=== PATIENT | female | born 1995 | race Caucasian/White ===

== ENCOUNTER → 2020-06-07 09:12 | Outpatient (CLI) | payer BC, SELFPAY ==
--- NOTE | ~2020-06-07 | US_ITS ---
US breast LT complete DATE: 06/07/2020 09:37 INDICATION: Left breast lump TECHNIQUE: Complete left breast ultrasound examination COMPARISON: None FINDINGS: No suspicious mass or shadowing is detected. IMPRESSION: BI-RADS Category 1: Negative Reviewed, dictated and finalized at [facility]. Reviewed, dictated and finalized at [facility]. [employer]
== END ==
PROVIDERS: Visit Provider Obstetrics & Gynecology
DX: N63.20 Unspecified lump in the left breast, unspecified quadrant (principal)
CPT/HCPCS: 76641

== ENCOUNTER 2020-10-10 09:04 | Emergency (ER) | payer BC, SELFPAY ==
[2020-10-10 09:36] VITALS: BP 129/64; PULSE 100; RESP 14; TEMP 36.8; O2SAT 100
--- NOTE | 2020-10-10 09:42 | ED.GENADULT ---
HPI - General Adult General Chief complaint: Headache Stated complaint: weathers/sinus problems Time Seen by Provider: 10/10/20 09:27 Source: patient Mode of arrival: ambulatory Limitations: no limitations History of Present Illness HPI narrative: Patient is a 25-year-old female who presents to emergency department for evaluation of headache and sinus symptoms for 1 week patient has been to 3 urgent cares is currently taking Claritin and Flonase prescribed by her ENT was placed on amoxicillin by urgent care and presents noting that she continues to have sinus symptoms. Patient denies fever chills nausea vomiting. Patient notes she is fully vaccinated from COVID-19. Patient denies any vomiting presents in no distress Related Data Home Medications Medication Instructions Recorded Confirmed amoxicillin 500 mg 10/10/20 cabergoline mg 10/10/20 dextroamphetamine-amphetamine 20 mg PO 10/10/20 [Adderall XR] gabapentin 10/10/20 lamotrigine 10/10/20 naltrexone mg 10/10/20 sertraline mg 10/10/20 Allergies Allergy/AdvReac Type Severity Reaction Status Date / Time grapefruit Allergy Unknown Rash Verified 03/16/17 03:49 No Known Drug Allergies Allergy Other Verified 10/10/20 09:40 Review of Systems Review of Systems: All systems reviewed & are unremarkable except as noted in HPI and below PMFSH Past Medical History Medical History (Updated 10/10/20 @ 09:48 by Tadeo Pinto PA-C) Bipolar disorder Social History Social History (Updated 10/10/20 @ 09:45 by Tadeo Pinto PA-C) Smoking status: Never smoker Exam Narrative: Exam Narrative: GENERAL: Well-appearing, well-nourished, and in no acute distress. HEAD: Normocephalic, atraumatic. EYES: PERRLA and EOMI. ENT: Nares clear, no rhinorrhea or epistaxis. Mucous membranes moist. Oropharynx without tonsillar hypertrophy exudate or other lesions. Bilateral TMs slightly erythematous and bulging with poor landmarks NECK: Supple. No adenopathy or masses. CHEST: Clear to auscultation. No respiratory distress. No wheezes rales or rhonchi HEART: Regular rate and rhythm. No murmur heard. EXTREMITIES: Normal range of motion. No edema. SKIN: Warm, dry, no rash. NEURO: No focal deficits. Alert and oriented x3. Cranial nerves II through XII grossly intact PSYCH: Normal mood and affect. Course Course Emergency Course: Patient in the room in no distress hemodynamically stable afebrile nontoxic-appearing advised to follow with her ENT will be treated symptomatically continuing her antibiotics felt appropriate for outpatient reevaluation Vital Signs Vital signs: Vital Signs Temperature 98.3 F 10/10/20 09:36 Pulse Rate 100 10/10/20 09:36 Respiratory Rate 14 10/10/20 09:36 Blood Pressure 129/64 10/10/20 09:36 Pulse Oximetry 100 10/10/20 09:36 Temperature 98.3 F 10/10/20 09:36 Pulse Rate 100 10/10/20 09:36 Respiratory Rate 14 10/10/20 09:36 Blood Pressure 129/64 10/10/20 09:36 Pulse Oximetry 100 10/10/20 09:36 Medical Decision Making MDM Narrative Medical decision making narrative: Patient with sinus symptoms presenting in no distress normal gait. there are No focal neurological deficits on exam. Subarachnoid hemorrhage is felt to be unlikey at this time. There is no history of fever, and neck is supple without meningismus, making meningitis unlikely. No traumatic history or signs of trauma on exam. No risk factors for CVA, risk factors reviewed. Patient advised to follow with her ENT and to continue her treatment plan Vital Signs Vital Signs: Vital Signs Temperature 98.3 F 10/10/20 09:36 Pulse Rate 100 10/10/20 09:36 Respiratory Rate 14 10/10/20 09:36 Blood Pressure 129/64 10/10/20 09:36 Pulse Oximetry 100 10/10/20 09:36 Temperature 98.3 F 10/10/20 09:36 Pulse Rate 100 10/10/20 09:36 Respiratory Rate 14 10/10/20 09:36 Blood Pressure 129/64 10/10/20 09:36 Pulse Oximetry 100 10/10/20 09
[2020-10-10] MEDS: KETOROLAC 30 MG/ML VIAL (*BKC) IV PUSH (10:10)
[2020-10-10 11:08] VITALS: BP 108/78; PULSE 93; RESP 14; O2SAT 100
== END 2020-10-10 11:10 | disposition home or self-care (01) ==
PROVIDERS: Emergency Provider Emergency Medicine
DX: R50.9 Fever, unspecified (principal); J32.9 Chronic sinusitis, unspecified; F31.9 Bipolar disorder, unspecified
CPT/HCPCS: 96374; 99284; J1885

== ENCOUNTER 2023-09-27 07:13 | Emergency (ER) | payer OTHER, SELFPAY ==
[2023-09-27] VITALS (24 sets, daily range): BP systolic 104–124; BP diastolic 71–85; PULSE 89–110; RESP 11–26; TEMP 36.8; O2SAT 97–100
--- NOTE | ~2023-09-27 | XR_ITS ---
EXAMINATION: XR chest 2V 09/27/2023 08:11 INDICATION: Chest pain PROCEDURE: 2 view chest COMPARISON: No prior studies for comparison. FINDINGS: The lungs are clear. The cardiomediastinal silhouette is within normal limits. There are no pleural effusions. There is no pneumothorax suspected. IMPRESSION: 1: NO ACUTE CARDIOPULMONARY DISEASE. Reviewed, dictated and finalized at [facility].
--- NOTE | 2023-09-27 07:18 | ECG_ITS ---
Measurements Intervals Turner Rate: 99 P: -1 FL: 153 QRS: 55 QRSD: 86 T: 46 QT: 317 QTc: 407 Interpretive Statements SINUS RHYTHM BASELINE ARTIFACT- I, II, AVR, AVL, AVF, V1 NORMAL ECG NO PREVIOUS ECG AVAILABLE FOR COMPARISON Electronically Signed On 09-27-2023 7:30:51 CDT by Per Hernandez D.O.
[2023-09-27 07:47] LABS: INR 0.9; Prothrombin Time 12.9 Seconds (11.1-14.7)
[2023-09-27 07:49] LABS: Alanine Aminotransferase 15 U/L (6-35); Albumin Level 4.5 g/dL (3.5-5.1); Alkaline Phosphatase 73 U/L (38-126); Anion Gap 7 mmol/L (8-16); Aspartate Amino Transferase 34 U/L (14-36); Bilirubin,Total 0.4 mg/dL (0.2-1.3); Blood Urea Nitrogen 11 mg/dL (7-17); Calcium 9.2 mg/dL (8.4-10.2); Carbon Dioxide 25 mmol/L (22-30); Chloride 107 mmol/L (98-107); Estimated CRCL calculation 79 ml/min; Estimated Glomerular Filt Rate > 60; Glucose 101 mg/dL (65-110); Lipase 101 U/L (23-300); Potassium 3.3 mmol/L (3.4-5.0); Sodium 139 mmol/L (137-145)
[2023-09-27] MEDS: FAMOTIDINE 20 MG/2 ML VIAL IV PUSH (07:50)
[2023-09-27] MEDS: KETOROLAC 15 MG/ML VIAL (*BKC) IV PUSH (07:50)
[2023-09-27 07:51] LABS: Basophils Absolute Auto 0.1 K/mm3 (0.0-0.1); Basophils Percent Auto 0.7 % (0.2-1.2); Eosinophils Absolute Auto 0.4 K/mm3 (0-0.3); Eosinophils Percent Auto 4.6 % (0-4.4); Hematocrit 47.3 % (37.0-47.0); Hemoglobin 15.3 g/dL (12.0-15.0); Immature Granulocyte Absolute 0.02 K/mm3 (0.00-0.031); Immature Granulocyte Percent A 0.2 % (0-0.5); Lymphocytes Absolute Auto 2.63 K/mm3 (0.9-3.2); Lymphocytes Percent Auto 31.5 % (18.3-44.2); Mean Corpuscular HGB Conc 32.3 g/dl (32-36); Mean Corpuscular Hemoglobin 29.7 pg (26-34); Mean Corpuscular Volume 91.8 fl (80-100); Mean Platelet Volume 10.7 fl (7.4-10.4); Monocytes Absolute Auto 0.7 K/mm3 (0.1-0.6); Monocytes Percent Auto 8.2 % (2.6-8.5); Neutrophils Absolute Auto 4.6 K/mm3 (1.3-6.7); Neutrophils Percent Auto 54.8 % (45.5-73.1); Platelet Count Result 310 k/mm3 (150-375); Red Blood Count 5.15 M/mm3 (4.2-5.4); Red Cell Distribution Width 12.3 % (11.5-14.5); White Blood Count 8.3 K/mm3 (4.5-10.0)
[2023-09-27 08:01] LABS: Troponin I < 0.012 ng/mL (0.000-0.034)
--- NOTE | 2023-09-27 09:16 | ED.CHESTPAIN ---
HPI - Chest Pain General Chief Complaint: Chest Pain Stated Complaint: CP,Nausea,Vomiting Time Seen by Provider: 09/27/23 07:22 History of Present Illness HPI narrative: 28-year-old with a history of bipolar disorder, anxiety here with complaints of upper abdominal pain. Patient states that she woke up and was hungry and was trying to eat old male of sudden developed severe pain in the left upper abdomen radiating into her chest patient states the pain was sharp your she also stated that she was nauseated and vomited once. She denies any shortness of breath. No of any CAD or heart related issues Risk Factors Coronary artery disease risk factors: none Thoracic aortic dissection risk factors: none Related Data Home Medications Medication Instructions Recorded Confirmed dextroamphetamine-amphetamine ER 20 mg PO 10/10/20 10/30/21 20 mg 24hr capsule,extend release (Adderall XR) lamotrigine 100 mg tablet 10/10/20 10/30/21 sertraline 100 mg tablet mg 10/10/20 10/30/21 Allergies Allergy/AdvReac Type Severity Reaction Status Date / Time hydrocodone Allergy Hives Verified 09/27/23 07:15 Review of Systems Constitutional: Constitutional: Reports no additional constitutional complaints Eyes: Eyes: Reports no additional eye complaints ENT: Reports system reviewed and no additional complaints, except as documented Cardiovascular: Cardiovascular: Reports as per HPI Respiratory: Respiratory: Reports no additional respiratory complaints Gastrointestinal: Gastrointestinal: Reports as per HPI Genitourinary: Genitourinary: Reports no additional female genitourinary complaints Musculoskeletal: Musculoskeletal: Reports no additional musculoskeletal complaints Integumentary/Breasts: Skin/Breast: Reports system reviewed and no additional complaints, except as docu Neurologic: Reports system reviewed and no additional complaints, except as documented Psychiatric: Psychiatric: Reports no additional psychiatric complaints Endocrine: Endocrine: Reports no additional endocrine complaints [facility] Past Medical History Medical History Bipolar disorder Constipation IUD contraception (~04/06/19) mirena iud insertion Migraines Surgical History Surgical History Hx of tooth extraction Family History Family History Grandparent Diabetes mellitus paternal grandmother Hypertension paternal grandfather Aneurysm maternal grandmother Bipolar disorder maternal grandmother Father Hypertension Diabetes mellitus Sibling Diabetes mellitus brother Other Depression Social History Social History Smoking status: Never smoker Alcohol intake: current Alcohol use details: social Substance use: former Substance use type: marijuana Last use: 07/07/2021 Living arrangements: other Additional living arrangements comments: single Occupation/Education: occupation Additional occupation/education comments: tech support Gender identity (if verbalized by the patient): Other Additional gender identity comments: non binary Sexual Orientation (if Verbalized by the Patient): Bisexual Exam Narrative: GENERAL: Well-appearing, well-nourished, and in no acute distress. HEAD: Normocephalic, atraumatic. EYES: PERRLA and EOMI. ENT: Nares clear, no rhinorrhea or epistaxis. Mucous membranes moist. NECK: Supple. CHEST: Clear to auscultation. No respiratory distress. HEART: Regular rate and rhythm. No murmur heard. Normal peripheral pulses. ABDOMEN: Soft, mild tenderness in the LUQ, nondistended, normal active bowel sounds. EXTREMITIES: Normal range of motion. No edema. SKIN: Warm, dry, no rash. NEURO: No focal deficits. Alert and oriented x3. PSYCH: Normal mood and af
== END 2023-09-27 10:04 | disposition home or self-care (01) ==
PROVIDERS: Emergency Medicine; Emergency Provider Family Medicine; PCP Internal Medicine
DX: R07.89 Other chest pain (principal); F31.9 Bipolar disorder, unspecified; F41.9 Anxiety disorder, unspecified; Z97.5 Presence of (intrauterine) contraceptive device
CPT/HCPCS: 36415; 71046; 80053; 83690; 84484; 85025; 85610; 85730; 93005; 96374; 96375; 99284; J1885